=== PATIENT | male | born 1965 | race Caucasian/White ===

== ENCOUNTER 2016-11-13 20:28 | Emergency (ER) | payer OTHER ==
[~2016-11-13] VITALS: Ht 162.6 cm; Wt 77.1 kg
[2016-11-13 21:10] VITALS: BP 144/84
--- NOTE | 2016-11-13 21:38 | Emergency Room Report ---
History of Present Illness General Chief Complaint: Behavioral Complaint Source: Patient Present Illness HPI 51-year-old male brought by or auditory hallucinations. Patient states that he has been hearing voices, today, multiple voices who are introducing themselves to him. Voices are saying "I am Martín", however voices are not commanding him to do things. Patient denying any suicidal or homicidal ideation. Patient states that he has heard voices many years ago, that went away on its own. Patient states that he did see a psychiatrist many years ago however was never put on any medications. Patient states that he had suicidal thoughts once more than 10 years ago, but has since then never had any suicidal homicidal Patient denying any current depressive symptoms, lives with his and daughter. is at bedside with patient. Allergies: Coded Allergies: IBUPROFEN (Verified Allergy, Unknown, 11/13/16) PENICILLINS (Verified Allergy, Unknown, 11/13/16) Patient History Past Medical History: see triage record Past Surgical History: none Pertinent Family History: none Reviewed Nursing Documentation: PMH: Agreed, PSxH: Agreed Review of Systems All Other Systems: negative except mentioned in HPI Physical Exam Vital Signs Date Time Temp Pulse Resp B/P (MAP) Pulse Ox O2 Delivery O2 Flow Rate FiO2 11/13/16 20:55 98.2 137 18 144/84 96 Room Air Sp02 EP Interpretation: reviewed, normal General Appearance: normal inspection, well appearing, no apparent distress, alert, GCS 15, non-toxic, other - Calm cooperative, conversing appropriately at bedside, not acute distress Head: normocephalic, atraumatic Eyes: bilateral eye normal inspection, bilateral eye PERRL, bilateral eye EOMI ENT: normal ENT inspection, normal pharynx, normal voice, moist mucus membranes Neck: normal inspection, full range of motion, supple Respiratory: normal inspection, lungs clear, normal breath sounds, no respiratory distress, no retraction, no wheezing, speaking full sentences, chest symmetrical Cardiovascular #1: normal inspection, regular rate, rhythm, no edema, normal capillary refill Cardiovascular #2: 2+ radial (R), 2+ radial (L) Gastrointestinal: normal inspection, non tender, soft, non-distended, no guarding Musculoskeletal: normal inspection, back normal, normal range of motion, non- tender Neurologic: normal inspection, alert, oriented x3, responsive, motor strength/ tone normal, sensory intact, normal gait, speech normal Psychiatric: no suicidal/homicidal ideation, other - Patient with auditory hallucinations, however, cooperative, no suicidal or homicidal ideation, voices are not commanding Skin: normal inspection, normal color, no rash, warm/dry, well hydrated, normal turgor Medical Decision Making Diagnostic Impression: Primary Impression: Auditory hallucinations ER Course 51-year-old male with auditory hallucinations for one day DDX: No history of any tox ? Psychosis/schizophrenia Plan: At this time voices are not harmful, are not recommending to the patient, patient is AO x3, no SI or HI ER course: Patient has remained stable during ED stay. Disposition: Patient is to be discharged to home with family Patient instructed to followup with psychiatrist within 3 days Strict return precautions discussed with patient and such as commanding auditory hallucinations, depressive symptoms, any SI or HI They verbalized understanding and agree with the plan Please note that this Emergency Department Report was dictated using [employer] center manager technology software, occasionally this can lead to erroneous entry secondary to interpretation by the dictation equipment Last Vital Signs Date Time Temp Pulse Resp B/P (MAP) Pulse Ox O2 Delivery O2 Flow Rate FiO2 11/13/16 20:55 98.2 137 18 144/84 96 Room Air Disposition: HOME, SELF-CARE Condition: Stable Patient Instructions: Psychosis Additional Instructions: Please followup with a psychiatrist in 2 days without fail Please return to the emergency room if you are experiencing severe depression, suicidal or homicidal thoughts, or if voices are commanding things.. Joni Rangel M.D. Nov 13, 2016 21:38
[2016-11-13 21:46] VITALS: BP 144/84
== END 2016-11-13 21:56 | disposition home or self-care (01) ==
LOC: EMR 21:15
DX: R44.0 Auditory hallucinations (principal); Z88.0 Allergy status to penicillin; Z88.6 Allergy status to analgesic agent
CPT/HCPCS: 99284